=== PATIENT | female | born 1975 | race Caucasian/White ===

== ENCOUNTER → 2017-05-24 16:28 | Outpatient (CLI) | payer OTHER, SELFPAY ==
[2017-05-24 20:32] LABS: Amphetamine/Metha Screen,Urine Negative ng/mL (<1000); Barbiturates Screen,Urine Negative ng/mL (<200); Benzodiazepines Screen,Urine Positive ng/mL (200); Cannabinoid Screen,Urine Negative ng/mL (<50); Cocaine Screen,Urine Negative ng/g (<300); Methadone Screen,Urine Negative ng/mL (<300); Opiate Screen,Urine Negative ng/mL (<300); Phencyclidine Screen,Urine Negative ng/mL (<25)
== END ==
PROVIDERS: Visit Provider Emergency Medicine
DX: Z79.899 Other long term (current) drug therapy (principal)
CPT/HCPCS: 80305

== ENCOUNTER → 2017-06-01 16:37 | Outpatient (CLI) | payer OTHER, SELFPAY ==
--- NOTE | 2017-06-01 16:40 | MM_ITS ---
MM Dig screening mamm BI w/CAD CAD Screening COMPARISON: None, this is baseline INDICATION: There is a history of breast cancer in the patient's maternal great-grandmother diagnosed after menopause and paternal great aunt diagnosed in her 40s TECHNIQUE: Standard CC and MLO images were obtained. R2 CAD reviewed. FINDINGS: Prominent diffuse fibroglandular densities are seen throughout both breasts. There is asymmetric somewhat nodular densities upper outer quadrant left breast likely resenting summation shadows. However recommend patient return for spot compression views of this area for better evaluation. There are no suspicious microcalcifications. IMPRESSION: Fibrofatty parenchyma with asymmetric nodular densities left breast BI-RADS Category: 0 Need Additional Imaging Evaluaiton RECOMMENDED FOLLOW-UP: IMM - IMMEDIATE FOLLOW-UP RECOMMENDED (A letter has been sent to the patient regarding results of the study.)
== END ==
PROVIDERS: PCP Emergency Medicine; Visit Provider Emergency Medicine
DX: Z12.31 Encounter for screening mammogram for malignant neoplasm of breast (principal)
CPT/HCPCS: 77067

== ENCOUNTER → 2017-06-18 16:09 | Outpatient (CLI) | payer OTHER, SELFPAY ==
--- NOTE | 2017-06-18 | US_ITS ---
MM Dig spot mag LT, US breast LT complete CLINICAL INDICATION: Follow-up abnormal mammogram ITS.REASON: DENSITY IN LT BREAST ORDERING PHYSICIAN: KATHLEEN Woods PATIENT AGE: 42 years COMPARISON: 05/22/2017 TECHNIQUE: Spot compression views along with left breast ultrasound FINDINGS: Average fibroglandular tissue. No malignant appearing mass or malignant appearing microcalcification. There is some asymmetric density in the upper outer aspect of the left breast. No discrete nodule however is apparent on both views. Left breast ultrasound complete with axilla: No cystic or solid lesions evident. Small nodes present in the axilla. IMPRESSION: Probably benign findings. Asymmetric density probably corresponds to fibroglandular tissue. BI-RADS Category 3 probably benign Recommendations: Recommend 6 month left breast mammographic follow-up
== END ==
PROVIDERS: PCP Emergency Medicine; Visit Provider Physician Assistant
DX: R92.8 Other abnormal and inconclusive findings on diagnostic imaging of breast (principal)
CPT/HCPCS: 76641; 77065

== ENCOUNTER → 2017-08-20 16:18 | Outpatient (REF) | payer OTHER, SELFPAY ==
[2017-08-20 19:33] LABS: Amphetamine/Metha Screen,Urine Negative ng/mL (<1000); Barbiturates Screen,Urine Negative ng/mL (<200); Benzodiazepines Screen,Urine Positive ng/mL (200); Cannabinoid Screen,Urine Negative ng/mL (<50); Cocaine Screen,Urine Negative ng/g (<300); Methadone Screen,Urine Negative ng/mL (<300); Opiate Screen,Urine Negative ng/mL (<300); Phencyclidine Screen,Urine Negative ng/mL (<25)
== END ==
LOC: LAB 16:18
PROVIDERS: Visit Provider Emergency Medicine
DX: Z79.899 Other long term (current) drug therapy (principal)
CPT/HCPCS: 80305

== ENCOUNTER → 2017-11-09 16:27 | Outpatient (REF) | payer OTHER, SELFPAY ==
[2017-11-09 18:43] LABS: Amphetamine/Metha Screen,Urine Negative ng/mL (<1000); Barbiturates Screen,Urine Negative ng/mL (<200); Benzodiazepines Screen,Urine Positive ng/mL (<200); Cannabinoid Screen,Urine Negative ng/mL (<50); Cocaine Screen,Urine Negative ng/mL (<300); Methadone Screen,Urine Negative ng/mL (<300); Opiate Screen,Urine Negative ng/mL (<300); Phencyclidine Screen,Urine Negative ng/mL (<25)
== END ==
LOC: LAB 16:27
PROVIDERS: Visit Provider Emergency Medicine
DX: F41.9 Anxiety disorder, unspecified (principal); Z79.899 Other long term (current) drug therapy
CPT/HCPCS: 80305

== ENCOUNTER → 2018-02-02 16:22 | Outpatient (REF) | payer OTHER, SELFPAY ==
[2018-02-02 20:09] LABS: Amphetamine/Metha Screen,Urine Negative ng/mL (<1000); Barbiturates Screen,Urine Negative ng/mL (<200); Benzodiazepines Screen,Urine Positive ng/mL (<200); Cannabinoid Screen,Urine Negative ng/mL (<50); Cocaine Screen,Urine Negative ng/mL (<300); Methadone Screen,Urine Negative ng/mL (<300); Opiate Screen,Urine Negative ng/mL (<300); Phencyclidine Screen,Urine Negative ng/mL (<25)
== END ==
LOC: LAB 16:22
PROVIDERS: PCP Emergency Medicine; Visit Provider Emergency Medicine
DX: Z79.899 Other long term (current) drug therapy (principal)
CPT/HCPCS: 80305

== ENCOUNTER → 2018-04-05 17:44 | Outpatient (CLI) | payer OTHER, SELFPAY ==
[2018-04-05 21:48] LABS: Amphetamine/Metha Screen,Urine Negative ng/mL (<1000); Barbiturates Screen,Urine Negative ng/mL (<200); Benzodiazepines Screen,Urine Positive ng/mL (<200); Cannabinoid Screen,Urine Negative ng/mL (<50); Cocaine Screen,Urine Negative ng/mL (<300); Methadone Screen,Urine Negative ng/mL (<300); Opiate Screen,Urine Negative ng/mL (<300); Phencyclidine Screen,Urine Negative ng/mL (<25)
== END ==
PROVIDERS: Visit Provider Emergency Medicine
DX: M54.41 Lumbago with sciatica, right side (principal); G89.29 Other chronic pain
CPT/HCPCS: 80305

== ENCOUNTER → 2018-06-14 07:54 | Outpatient (CLI) | payer OTHER, SELFPAY ==
--- NOTE | 2018-06-14 08:00 | MR_ITS ---
MR lumbar spine wo con, MR 3-d myelogram/MRCP HISTORY: Low back X years. Right Leg pain. ITS.REASON: BACK PAIN ORDERING PHYSICIAN: Comfort Soria PATIENT AGE: 43 years Comparison: X-RAY 12/06/06 TECHNIQUE: Standard multiplanar multiecho sequences are performed without contrast. 3-D MIP and myelographic images are also rendered and reviewed FINDINGS: There is normal alignment. The spinal cord ends at the L1 level. There is a 1 cm T2 hyperintensity involving the inferior aspect of L1 slightly hyperintense on T1 and may be due to small hemangioma. L1-L2: Unremarkable. L2-L3: There is some mild facet and ligamentum flavum hypertrophic change. L3-L4: There is mild degenerative disc disease with minimal bulging disc along with facet and ligamentum hypertrophy with mild bilateral lateral recess narrowing and moderate right and mild left foraminal narrowing. The bulging disc is slightly eccentric toward the right at this level. L4-L5: There is a left foraminal and lateral disc protrusion which results in mild left-sided foraminal narrowing abutting the exiting L4 nerve root. L5-S1: Unremarkable. IMPRESSION: 1. L3-L4: There is mild degenerative disc disease with minimal bulging disc along with facet and ligamentum hypertrophy with mild bilateral lateral recess narrowing and moderate right and mild left foraminal narrowing. The bulging disc is slightly eccentric toward the right at this level. 2. L4-L5: There is a left foraminal and lateral disc protrusion which results in mild left-sided foraminal narrowing abutting the exiting L4 nerve root
== END ==
PROVIDERS: PCP Emergency Medicine; Visit Provider Nurse Practitioner Family
DX: M54.5 Low back pain (principal)
CPT/HCPCS: 72148; 76376

== ENCOUNTER → 2018-07-19 18:23 | Outpatient (CLI) | payer OTHER, SELFPAY ==
[2018-07-19 19:57] LABS: Amphetamine/Metha Screen,Urine Negative ng/mL (<1000); Barbiturates Screen,Urine Negative ng/mL (<200); Benzodiazepines Screen,Urine Positive ng/mL (<200); Cannabinoid Screen,Urine Negative ng/mL (<50); Cocaine Screen,Urine Negative ng/mL (<300); Methadone Screen,Urine Negative ng/mL (<300); Opiate Screen,Urine Positive ng/mL (<300); Phencyclidine Screen,Urine Negative ng/mL (<25)
== END ==
PROVIDERS: Visit Provider Emergency Medicine
DX: Z79.899 Other long term (current) drug therapy (principal)
CPT/HCPCS: 80305

== ENCOUNTER → 2018-10-17 18:15 | Outpatient (CLI) | payer OTHER, SELFPAY ==
[2018-10-17 19:03] LABS: Amphetamine/Metha Screen,Urine Positive ng/mL (<1000); Barbiturates Screen,Urine Negative ng/mL (<200); Benzodiazepines Screen,Urine Positive ng/mL (<200); Cannabinoid Screen,Urine Negative ng/mL (<50); Cocaine Screen,Urine Negative ng/mL (<300); Methadone Screen,Urine Negative ng/mL (<300); Opiate Screen,Urine Negative ng/mL (<300); Phencyclidine Screen,Urine Negative ng/mL (<25)
== END ==
PROVIDERS: Visit Provider Emergency Medicine
DX: Z79.899 Other long term (current) drug therapy (principal)
CPT/HCPCS: 80305

== ENCOUNTER → 2018-11-21 18:01 | Outpatient (CLI) | payer OTHER, SELFPAY ==
[2018-11-21 19:07] LABS: Amphetamine/Metha Screen,Urine Negative ng/mL (<1000); Barbiturates Screen,Urine Negative ng/mL (<200); Benzodiazepines Screen,Urine Positive ng/mL (<200); Cannabinoid Screen,Urine Negative ng/mL (<50); Cocaine Screen,Urine Negative ng/mL (<300); Methadone Screen,Urine Negative ng/mL (<300); Opiate Screen,Urine Negative ng/mL (<300); Phencyclidine Screen,Urine Negative ng/mL (<25)
== END ==
PROVIDERS: Visit Provider Emergency Medicine
DX: Z79.899 Other long term (current) drug therapy (principal)
CPT/HCPCS: 80305

== ENCOUNTER → 2019-04-04 16:49 | Outpatient (CLI) | payer OTHER, SELFPAY ==
[2019-04-04 18:21] LABS: Amphetamine/Metha Screen,Urine Negative ng/mL (<1000); Barbiturates Screen,Urine Negative ng/mL (<200); Benzodiazepines Screen,Urine Positive ng/mL (<200); Cannabinoid Screen,Urine Negative ng/mL (<50); Cocaine Screen,Urine Negative ng/mL (<300); Methadone Screen,Urine Negative ng/mL (<300); Opiate Screen,Urine Negative ng/mL (<300); Phencyclidine Screen,Urine Negative ng/mL (<25)
[2019-04-13 10:21] LABS: Oxycodone Positive (.); Oxymorphone Positive (.)
[2019-04-13 11:13] LABS: Oxycodone Confirm 1582 ng/mL (Cutoff=100); Oxymorphone Confirm 1648 ng/mL (Cutoff=100)
== END ==
PROVIDERS: Visit Provider Emergency Medicine
DX: Z79.899 Other long term (current) drug therapy (principal)
CPT/HCPCS: 80305; 80365

== ENCOUNTER → 2019-05-31 18:38 | Outpatient (CLI) | payer OTHER, SELFPAY ==
[2019-05-31 19:24] LABS: Amphetamine/Metha Screen,Urine Positive ng/mL (<1000); Barbiturates Screen,Urine Negative ng/mL (<200); Benzodiazepines Screen,Urine Positive ng/mL (<200); Cannabinoid Screen,Urine Negative ng/mL (<50); Cocaine Screen,Urine Negative ng/mL (<300); Methadone Screen,Urine Negative ng/mL (<300); Opiate Screen,Urine Negative ng/mL (<300); Phencyclidine Screen,Urine Negative ng/mL (<25)
[2019-06-11 18:13] LABS: Oxycodone (GC/MS) >3000 ng/mL (Cutoff=100)
[2019-06-11 22:06] LABS: Opiates Negative (Cutoff=100); Oxymorphone (GC/MS) 910 ng/mL (Cutoff=100)
== END ==
PROVIDERS: Visit Provider Emergency Medicine
DX: G89.29 Other chronic pain (principal); M54.41 Lumbago with sciatica, right side
CPT/HCPCS: 80305; 80361; 80365; G0480

== ENCOUNTER → 2019-09-26 10:53 | Outpatient (CLI) | payer OTHER, SELFPAY ==
--- NOTE | 2019-09-26 10:59 | XR_ITS ---
PROCEDURE: XR ANKLE WT BEARING LT MIN 3V Left foot weight-bearing three views CLINICAL INDICATION: ankle pain COMPARISON: XR FOOT WT BEARING LT 2V from 09/26/2019 FINDINGS: The ankle has an unremarkable appearance. No fracture or dislocation. There is minimal bony hypertrophic change of the neck of the talus anteriorly. Three views of the left foot show no fracture or dislocation. There is borderline pes planus and there is minimal osteoarthritic change of the 1st MTP joint. IMPRESSION: Mild degenerative changes, no acute finding Dictated by: Lorenzo Hanley MD 09/26/2019 15:14 Electronically signed by Lorenzo Hanley MD in [place] 09/26/2019 15:14
--- NOTE | 2019-09-26 10:59 | XR_ITS ---
PROCEDURE: XR ANKLE WT BEARING RT MIN 3V Right foot weight-bearing three views CLINICAL INDICATION: ankle pain Medial pain COMPARISON: XR FOOT WT BEARING RT 2V from 09/26/2019 FINDINGS: There are mild degenerative changes at the ankle joint with minimal spurring of the anterior and posterior distal tibia and the talus this anteriorly and posteriorly. There is mild pes planus and there is a small calcaneal spur. Mild bony hypertrophy is present at the talonavicular joint. Mild bony hypertrophy also noted at the head of the 1st metatarsal. No fracture or dislocation. No lytic or blastic change. IMPRESSION: Degenerative changes with pes planus, no acute finding Dictated by: Lorenzo Hanley MD 09/26/2019 15:11 Electronically signed by Lorenzo Hanley MD in [place] 09/26/2019 15:11
--- NOTE | 2019-09-26 10:59 | XR_ITS ---
PROCEDURE: XR ANKLE WT BEARING LT MIN 3V Left foot weight-bearing three views CLINICAL INDICATION: ankle pain COMPARISON: XR FOOT WT BEARING LT 2V from 09/26/2019 FINDINGS: The ankle has an unremarkable appearance. No fracture or dislocation. There is minimal bony hypertrophic change of the neck of the talus anteriorly. Three views of the left foot show no fracture or dislocation. There is borderline pes planus and there is minimal osteoarthritic change of the 1st MTP joint. IMPRESSION: Mild degenerative changes, no acute finding Dictated by: Lorenzo aHnley MD 09/26/2019 15:14 Electronically signed by Lorenzo Hanley MD in [place] 09/26/2019 15:14
== END ==
PROVIDERS: PCP Emergency Medicine; Visit Provider Emergency Medicine
DX: M79.671 Pain in right foot (principal); M79.672 Pain in left foot
CPT/HCPCS: 73610; 73620

== ENCOUNTER → 2020-04-08 18:02 | Outpatient (CLI) | payer OTHER, SELFPAY ==
[2020-04-08 18:58] LABS: Alanine Aminotransferase 16 U/L (12-78); Albumin Level 4.1 g/dl (3.5-5.0); Albumin/Globulin Ratio 1.4 (1.1-1.8); Alkaline Phosphatase 91 U/L (38-126); Aspartate Amino Transferase 20 U/L (14-36); Bilirubin,Total 0.5 mg/dl (0.2-1.3); Blood Urea Nitrogen 17 mg/dl (7-17); Calcium 9.2 mg/dl (8.4-10.2); Carbon Dioxide 26 mmol/L (22.0-30.0); Chloride 104 mmol/L (98-107); Chol/HDL Ratio 2.6 (1-3.5); Cholesterol 162 mg/dl (140-200); Estimated Glomerular Filt Rate 78 ml/min (>60); GFR (African American) 94 ML/MIN (>60); Globulin 2.9 g/dL (1.3-3.2); Glucose 98 mg/dl (74-100); HDL Cholesterol 62 mg/dl (40-60); Sodium 138 mmol/L (136-145); Triglycerides 97 mg/dl (30-150); VLDL Cholesterol 19 mg/dL (0-40)
[2020-04-08 19:05] LABS: Basophils # 0.1 K/mm3 (0-0.2); Basophils % 0.9 % (0.1-2.0); Eosinophils # 0.2 K/mm3 (0.0-0.4); Eosinophils % 2.8 % (0.1-12.0); Hematocrit 41.8 % (37.0-47.0); Hemoglobin 13.7 g/dL (12.2-16.2); Lymphocytes # 2.9 K/mm3 (0.7-4.5); Lymphocytes % 33.3 % (10-50); Mean Corpuscular HGB Conc 32.8 g/dL (31.8-35.4); Mean Corpuscular Hemoglobin 28.2 pg (27.0-31.2); Mean Corpuscular Volume 85.9 fl (81-99); Mean Platelet Volume 8.9 fl (7.4-10.4); Monocytes # 0.7 K/mm3 (0.1-1.0); Monocytes % 7.5 % (1.7-9.3); Neutrophils # 4.9 K/mm3 (1.8-7.8); Neutrophils % 55.7 % (37.0-80.0); Platelet Count 339 K/mm3 (142-424); Red Blood Count 4.86 M/mm3 (4.20-5.40); Red Cell Distribution Width 14.7 % (11.5-17.5); White Blood Count 8.7 K/mm3 (4.8-10.8)
[2020-04-08 19:10] LABS: Direct LDL Cholesterol 84.96 mg/dL (100-129)
[2020-04-08 19:16] LABS: T4 (Thyroxine) 10.2 ug/dl (5.53-11.0)
[2020-04-08 19:19] LABS: 25-OH Vitamin D, Total 28.7 ng/mL (30-100)
[2020-04-08 19:29] LABS: Thyroid Stimulating Hormone 1.47 uIU/mL (0.465-4.68)
== END ==
PROVIDERS: Visit Provider Emergency Medicine
DX: F41.9 Anxiety disorder, unspecified (principal); R53.83 Other fatigue; E55.9 Vitamin D deficiency, unspecified
CPT/HCPCS: 80053; 80061; 82306; 84436; 84443; 85025

== ENCOUNTER → 2020-06-07 16:48 | Outpatient (CLI) | payer OTHER, SELFPAY ==
[2020-06-07 19:33] LABS: Amphetamine/Metha Screen,Urine Positive ng/ml (<1000)
[2020-06-07 19:34] LABS: Barbiturates Screen,Urine Negative ng/ml (<200)
[2020-06-07 19:35] LABS: Benzodiazepines Screen,Urine Positive ng/ml (<200); Cannabinoid Screen,Urine Negative ng/ml (<50)
[2020-06-07 19:36] LABS: Cocaine Screen,Urine Negative ng/ml (<300); Methadone Screen,Urine Negative ng/ml (<300)
[2020-06-07 19:37] LABS: Opiate Screen,Urine Positive ng/ml (<300)
[2020-06-07 19:38] LABS: Phencyclidine Screen,Urine Negative ng/ml (<25)
== END ==
PROVIDERS: Visit Provider Emergency Medicine
DX: Z79.899 Other long term (current) drug therapy (principal)
CPT/HCPCS: 80305

== ENCOUNTER → 2020-08-09 18:01 | Outpatient (CLI) | payer OTHER, SELFPAY ==
[2020-08-09 18:50] LABS: Amphetamine/Metha Screen,Urine Negative ng/ml (<1000)
[2020-08-09 18:52] LABS: Barbiturates Screen,Urine Negative ng/ml (<200)
[2020-08-09 18:53] LABS: Benzodiazepines Screen,Urine Positive ng/ml (<200)
[2020-08-09 18:54] LABS: Cannabinoid Screen,Urine Negative ng/ml (<50); Cocaine Screen,Urine Negative ng/ml (<300)
[2020-08-09 18:55] LABS: Methadone Screen,Urine Negative ng/ml (<300); Opiate Screen,Urine Negative ng/ml (<300)
[2020-08-09 18:56] LABS: Phencyclidine Screen,Urine Negative ng/ml (<25)
== END ==
PROVIDERS: Visit Provider Emergency Medicine
DX: F41.9 Anxiety disorder, unspecified (principal); Z79.899 Other long term (current) drug therapy
CPT/HCPCS: 80305

== ENCOUNTER → 2020-10-04 18:04 | Outpatient (CLI) | payer OTHER, SELFPAY ==
[2020-10-04 19:33] LABS: Amphetamine/Metha Screen,Urine Positive ng/ml (<1000)
[2020-10-04 19:34] LABS: Barbiturates Screen,Urine Negative ng/ml (<200); Benzodiazepines Screen,Urine Positive ng/ml (<200)
[2020-10-04 19:35] LABS: Cannabinoid Screen,Urine Negative ng/ml (<50)
[2020-10-04 19:36] LABS: Cocaine Screen,Urine Negative ng/ml (<300); Methadone Screen,Urine Negative ng/ml (<300)
[2020-10-04 19:37] LABS: Opiate Screen,Urine Positive ng/ml (<300)
[2020-10-04 19:38] LABS: Phencyclidine Screen,Urine Negative ng/ml (<25)
== END ==
PROVIDERS: Visit Provider Emergency Medicine
DX: Z79.899 Other long term (current) drug therapy (principal)
CPT/HCPCS: 80305

== ENCOUNTER → 2020-12-06 17:34 | Outpatient (CLI) | payer OTHER, SELFPAY ==
[2020-12-06 19:12] LABS: Barbiturates Screen,Urine Negative ng/ml (<200); Benzodiazepines Screen,Urine Positive ng/ml (<200)
[2020-12-06 19:13] LABS: Amphetamine/Metha Screen,Urine Negative ng/ml (<1000)
[2020-12-06 19:14] LABS: Cannabinoid Screen,Urine Negative ng/ml (<50); Cocaine Screen,Urine Negative ng/ml (<300)
[2020-12-06 19:15] LABS: Methadone Screen,Urine Negative ng/ml (<300); Opiate Screen,Urine Negative ng/ml (<300)
[2020-12-06 19:16] LABS: Phencyclidine Screen,Urine Negative ng/ml (<25)
== END ==
PROVIDERS: Visit Provider Emergency Medicine
DX: Z79.899 Other long term (current) drug therapy (principal)
CPT/HCPCS: 80305

== ENCOUNTER → 2021-01-22 18:12 | Outpatient (CLI) | payer OTHER, SELFPAY ==
[2021-01-22 19:19] LABS: Amphetamine/Metha Screen,Urine Negative ng/ml (<1000); Barbiturates Screen,Urine Negative ng/ml (<200)
[2021-01-22 19:20] LABS: Benzodiazepines Screen,Urine Positive ng/ml (<200)
[2021-01-22 19:21] LABS: Cannabinoid Screen,Urine Negative ng/ml (<50); Cocaine Screen,Urine Negative ng/ml (<300)
[2021-01-22 19:22] LABS: Methadone Screen,Urine Negative ng/ml (<300)
[2021-01-22 19:23] LABS: Opiate Screen,Urine Negative ng/ml (<300); Phencyclidine Screen,Urine Negative ng/ml (<25)
== END ==
PROVIDERS: Visit Provider Emergency Medicine
DX: Z79.899 Other long term (current) drug therapy (principal)
CPT/HCPCS: 80305

== ENCOUNTER → 2021-06-03 16:00 | Outpatient (CLI) | payer OTHER, SELFPAY ==
[2021-06-03 20:03] LABS: Barbiturates Screen,Urine Negative ng/ml (<200); Benzodiazepines Screen,Urine Positive ng/ml (<200)
[2021-06-03 20:04] LABS: Amphetamine/Metha Screen,Urine Negative ng/ml (<1000)
[2021-06-03 20:05] LABS: Cannabinoid Screen,Urine Negative ng/ml (<50); Cocaine Screen,Urine Negative ng/ml (<300)
[2021-06-03 20:06] LABS: Methadone Screen,Urine Negative ng/ml (<300)
[2021-06-03 20:07] LABS: Opiate Screen,Urine Negative ng/ml (<300); Phencyclidine Screen,Urine Negative ng/ml (<25)
== END ==
PROVIDERS: Visit Provider Emergency Medicine
DX: Z79.899 Other long term (current) drug therapy (principal)
CPT/HCPCS: 80305

== ENCOUNTER → 2021-08-04 08:48 | Outpatient (CLI) | payer OTHER, SELFPAY ==
[2021-08-04 20:47] LABS: Amphetamine/Metha Screen,Urine Negative ng/ml (<1000)
[2021-08-04 20:49] LABS: Barbiturates Screen,Urine Negative ng/ml (<200); Benzodiazepines Screen,Urine Positive ng/ml (<200)
[2021-08-04 20:50] LABS: Cannabinoid Screen,Urine Negative ng/ml (<50); Cocaine Screen,Urine Negative ng/ml (<300)
[2021-08-04 20:51] LABS: Methadone Screen,Urine Negative ng/ml (<300)
[2021-08-04 20:52] LABS: Opiate Screen,Urine Positive ng/ml (<300); Phencyclidine Screen,Urine Negative ng/ml (<25)
== END ==
PROVIDERS: Visit Provider Emergency Medicine
DX: G89.29 Other chronic pain (principal); M54.41 Lumbago with sciatica, right side
CPT/HCPCS: 80305

== ENCOUNTER → 2021-10-01 07:11 | Outpatient (CLI) | payer OTHER, SELFPAY ==
[2021-09-30 20:04] LABS: Amphetamine/Metha Screen,Urine Negative ng/ml (<1000)
[2021-09-30 20:05] LABS: Barbiturates Screen,Urine Negative ng/ml (<200)
[2021-09-30 20:06] LABS: Benzodiazepines Screen,Urine Positive ng/ml (<200); Cannabinoid Screen,Urine Negative ng/ml (<50)
[2021-09-30 20:07] LABS: Cocaine Screen,Urine Negative ng/ml (<300)
[2021-09-30 20:08] LABS: Methadone Screen,Urine Negative ng/ml (<300); Opiate Screen,Urine Negative ng/ml (<300)
[2021-09-30 20:09] LABS: Phencyclidine Screen,Urine Negative ng/ml (<25)
== END ==
PROVIDERS: PCP Emergency Medicine; Visit Provider Emergency Medicine
DX: Z79.899 Other long term (current) drug therapy (principal)
CPT/HCPCS: 80305

== ENCOUNTER → 2022-01-19 16:25 | Outpatient (CLI) | payer OTHER, SELFPAY ==
[2022-01-19 17:25] LABS: Basophils # 0.1 K/mm3 (0-0.2); Basophils % 0.9 % (0.1-2.0); Eosinophils # 0.2 K/mm3 (0.0-0.4); Eosinophils % 2.1 % (0.1-12.0); Hematocrit 41.2 % (37.0-47.0); Hemoglobin 13.2 g/dL (12.2-16.2); Lymphocytes % 34.2 % (10-50); Mean Corpuscular HGB Conc 32.1 g/dL (31.8-35.4); Mean Corpuscular Hemoglobin 27.5 pg (27.0-31.2); Mean Corpuscular Volume 85.8 fl (81-99); Mean Platelet Volume 7.7 fl (7.4-10.4); Monocytes # 0.7 K/mm3 (0.1-1.0); Monocytes % 7.3 % (1.7-9.3); Neutrophils # 4.9 K/mm3 (1.8-7.8); Neutrophils % 55.5 % (37.0-80.0); Platelet Count 309 K/mm3 (142-424); Red Blood Count 4.81 M/mm3 (4.20-5.40); Red Cell Distribution Width 14.4 % (11.5-17.5); White Blood Count 8.9 K/mm3 (4.8-10.8)
[2022-01-19 18:43] LABS: 25-OH Vitamin D, Total 48.7 ng/mL (30-100)
[2022-01-19 19:26] LABS: Chloride 103 mmol/L (98-107); Potassium 4.3 mmoL/L (3.5-5.1); Sodium 139 mmol/L (136-145)
[2022-01-19 19:28] LABS: Alanine Aminotransferase 19 U/L (12-78); Aspartate Amino Transferase 23 U/L (14-36); Blood Urea Nitrogen 16 mg/dl (7-17); Estimated Glomerular Filt Rate 108 ml/min (>60); GFR (African American) 130 ML/MIN (>60)
[2022-01-19 19:29] LABS: Albumin Level 4.2 g/dl (3.5-5.0); Albumin/Globulin Ratio 1.5 (1.1-1.8); Alkaline Phosphatase 89 U/L (38-126); Anion Gap 14.3 mEq/L (5-15); Bilirubin,Total 0.5 mg/dl (0.2-1.3); Calcium 8.4 mg/dl (8.4-10.2); Carbon Dioxide 26 mmol/L (22.0-30.0); Chol/HDL Ratio 2.8 (1-3.5); Cholesterol 189 mg/dl (140-200); Globulin 2.8 g/dL (1.3-3.2); Glucose 71 mg/dl (74-100); HDL Cholesterol 68 mg/dl (40-60); Triglycerides 63 mg/dl (30-150); VLDL Cholesterol 13 mg/dL (0-40)
[2022-01-19 19:40] LABS: Direct LDL Cholesterol 92.19 mg/dL (100-129)
== END ==
PROVIDERS: PCP Emergency Medicine; Visit Provider Emergency Medicine
DX: E66.01 Morbid (severe) obesity due to excess calories (principal); Z68.41 Body mass index [BMI] 40.0-44.9, adult
CPT/HCPCS: 80053; 80061; 82306; 84443; 85025

== ENCOUNTER → 2022-05-15 16:00 | Outpatient (CLI) | payer OTHER, SELFPAY ==
[2022-05-15 19:08] LABS: Amphetamine/Metha Screen,Urine Negative ng/ml (<1000); Barbiturates Screen,Urine Negative ng/ml (<200)
[2022-05-15 19:09] LABS: Benzodiazepines Screen,Urine Positive ng/ml (<200)
[2022-05-15 19:10] LABS: Cannabinoid Screen,Urine Negative ng/ml (<50); Cocaine Screen,Urine Negative ng/ml (<300)
[2022-05-15 19:11] LABS: Methadone Screen,Urine Negative ng/ml (<300)
[2022-05-15 19:12] LABS: Opiate Screen,Urine Negative ng/ml (<300); Phencyclidine Screen,Urine Negative ng/ml (<25)
== END ==
PROVIDERS: PCP Emergency Medicine; Visit Provider Emergency Medicine
DX: Z79.899 Other long term (current) drug therapy (principal)
CPT/HCPCS: 80305

== ENCOUNTER → 2022-07-03 14:14 | Outpatient (CLI) | payer OTHER, SELFPAY ==
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
== END ==
PROVIDERS: PCP Emergency Medicine; Visit Provider Emergency Medicine
DX: M54.9 Dorsalgia, unspecified (principal); M54.50 Low back pain, unspecified
CPT/HCPCS: 72148; 76376

== ENCOUNTER → 2022-09-01 16:10 | Outpatient (CLI) | payer OTHER, SELFPAY ==
[2022-09-01 20:32] LABS: Amphetamine/Metha Screen,Urine Negative ng/ml (<1000)
[2022-09-01 20:33] LABS: Barbiturates Screen,Urine Negative ng/ml (<200); Benzodiazepines Screen,Urine Positive ng/ml (<200)
[2022-09-01 20:34] LABS: Cannabinoid Screen,Urine Negative ng/ml (<50); Cocaine Screen,Urine Negative ng/ml (<300)
[2022-09-01 20:35] LABS: Methadone Screen,Urine Negative ng/ml (<300)
[2022-09-01 20:36] LABS: Opiate Screen,Urine Negative ng/ml (<300); Phencyclidine Screen,Urine Negative ng/ml (<25)
== END ==
PROVIDERS: PCP Physician Assistant; Visit Provider Physician Assistant
DX: Z79.899 Other long term (current) drug therapy (principal)
CPT/HCPCS: 80305

== ENCOUNTER → 2022-10-28 11:00 | Outpatient (CLI) | payer OTHER, SELFPAY ==
[2022-10-28 20:10] LABS: Amphetamine/Metha Screen,Urine Negative ng/ml (<1000)
[2022-10-28 20:13] LABS: Cannabinoid Screen,Urine Negative ng/ml (<50)
[2022-10-28 20:14] LABS: Barbiturates Screen,Urine Negative ng/ml (<200); Benzodiazepines Screen,Urine Positive ng/ml (<200)
[2022-10-28 20:15] LABS: Cocaine Screen,Urine Negative ng/ml (<300)
[2022-10-28 20:16] LABS: Methadone Screen,Urine Negative ng/ml (<300); Opiate Screen,Urine Negative ng/ml (<300)
[2022-10-28 20:17] LABS: Phencyclidine Screen,Urine Negative ng/ml (<25)
== END ==
PROVIDERS: PCP Emergency Medicine; Visit Provider Emergency Medicine
DX: F41.9 Anxiety disorder, unspecified (principal)
CPT/HCPCS: 80305

== ENCOUNTER → 2022-12-25 23:48 | Outpatient (CLI) | payer OTHER, SELFPAY ==
[2022-12-25 20:23] LABS: Amphetamine/Metha Screen,Urine Negative ng/ml (<1000); Barbiturates Screen,Urine Negative ng/ml (<200)
[2022-12-25 20:24] LABS: Benzodiazepines Screen,Urine Positive ng/ml (<200)
[2022-12-25 20:25] LABS: Cannabinoid Screen,Urine Negative ng/ml (<50); Cocaine Screen,Urine Negative ng/ml (<300)
[2022-12-25 20:26] LABS: Methadone Screen,Urine Negative ng/ml (<300)
[2022-12-25 20:27] LABS: Opiate Screen,Urine Negative ng/ml (<300); Phencyclidine Screen,Urine Negative ng/ml (<25)
== END ==
PROVIDERS: PCP Emergency Medicine; Visit Provider Emergency Medicine
DX: Z79.899 Other long term (current) drug therapy (principal)
CPT/HCPCS: 80305

== ENCOUNTER → 2023-02-22 08:23 | Outpatient (CLI) | payer OTHER, SELFPAY ==
[2023-02-22 21:32] LABS: Benzodiazepines Screen,Urine Positive ng/ml (<200)
[2023-02-22 21:33] LABS: Amphetamine/Metha Screen,Urine Negative ng/ml (<1000); Barbiturates Screen,Urine Negative ng/ml (<200)
[2023-02-22 21:34] LABS: Cannabinoid Screen,Urine Negative ng/ml (<50); Cocaine Screen,Urine Negative ng/ml (<300)
[2023-02-22 21:35] LABS: Methadone Screen,Urine Negative ng/ml (<300)
[2023-02-22 21:36] LABS: Opiate Screen,Urine Negative ng/ml (<300); Phencyclidine Screen,Urine Negative ng/ml (<25)
== END ==
PROVIDERS: PCP Emergency Medicine; Visit Provider Emergency Medicine
DX: Z79.899 Other long term (current) drug therapy (principal)
CPT/HCPCS: 80305

== ENCOUNTER → 2023-02-22 09:37 | Outpatient (CLI) | payer OTHER, SELFPAY ==
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
== END ==
LOC: RAD 09:38
PROVIDERS: PCP Emergency Medicine; Visit Provider Emergency Medicine
DX: M54.2 Cervicalgia (principal); M54.6 Pain in thoracic spine; M54.9 Dorsalgia, unspecified; M54.16 Radiculopathy, lumbar region
CPT/HCPCS: 72141; 72146; 76376

== ENCOUNTER → 2023-03-17 14:08 | Outpatient (POV) | payer OTHER, SELFPAY ==
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
[2023-03-17 15:56] VITALS: BP 150/84; PULSE 83; RESP 18; O2SAT 96; BMI 38.3
== END ==
LOC: SC.PAIN 14:08
PROVIDERS: PCP Emergency Medicine; Visit Provider Nurse Practitioner Family
DX: M50.10 Cervical disc disorder with radiculopathy, unspecified cervical region (principal); M51.16 Intervertebral disc disorders with radiculopathy, lumbar region; G89.4 Chronic pain syndrome
CPT/HCPCS: 99202; G0463

== ENCOUNTER 2023-03-25 15:00 | Outpatient (RCR) | payer OTHER, SELFPAY ==
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
[2023-02-24 16:24] LABS: Blood Urea Nitrogen 17 mg/dl (7-17); Estimated Glomerular Filt Rate 90 ml/min (>60); GFR (African American) 109 ML/MIN (>60)
== END 2023-03-25 16:10 | disposition home or self-care (01) ==
LOC: PT 15:00
PROVIDERS: PCP Emergency Medicine; Visit Provider Emergency Medicine
DX: M54.2 Cervicalgia (principal); M54.16 Radiculopathy, lumbar region
CPT/HCPCS: 36415; 82565; 84520; 97010; 97014; 97035; 97110; 97140; 97163; 97530; G0283

== ENCOUNTER → 2023-03-26 09:34 | Outpatient (CLI) | payer OTHER, SELFPAY ==
[2023-03-26 21:37] LABS: Phencyclidine Screen,Urine Negative ng/ml (<25)
[2023-03-26 21:43] LABS: Amphetamine/Metha Screen,Urine Negative ng/ml (<1000)
[2023-03-26 21:44] LABS: Barbiturates Screen,Urine Negative ng/ml (<200); Benzodiazepines Screen,Urine Positive ng/ml (<200)
[2023-03-26 21:45] LABS: Cannabinoid Screen,Urine Negative ng/ml (<50)
[2023-03-26 21:48] LABS: Cocaine Screen,Urine Negative ng/ml (<300)
[2023-03-26 21:49] LABS: Methadone Screen,Urine Negative ng/ml (<300)
[2023-03-26 21:50] LABS: Opiate Screen,Urine Negative ng/ml (<300)
== END ==
PROVIDERS: PCP Internal Medicine; Visit Provider Internal Medicine
DX: Z79.899 Other long term (current) drug therapy (principal); Z79.891 Long term (current) use of opiate analgesic; M54.12 Radiculopathy, cervical region
CPT/HCPCS: 80305; 80307

== ENCOUNTER → 2023-04-08 09:17 | Outpatient (CLI) | payer OTHER, SELFPAY ==
[2023-04-08 21:32] LABS: Barbiturates Screen,Urine Negative ng/ml (<200); Benzodiazepines Screen,Urine Positive ng/ml (<200)
[2023-04-08 21:33] LABS: Cannabinoid Screen,Urine Negative ng/ml (<50)
[2023-04-08 21:34] LABS: Cocaine Screen,Urine Negative ng/ml (<300)
[2023-04-08 21:35] LABS: Methadone Screen,Urine Negative ng/ml (<300); Opiate Screen,Urine Negative ng/ml (<300)
[2023-04-08 21:36] LABS: Phencyclidine Screen,Urine Negative ng/ml (<25)
[2023-04-08 21:44] LABS: Amphetamine/Metha Screen,Urine Negative ng/ml (<1000)
== END ==
PROVIDERS: PCP Internal Medicine; Visit Provider Internal Medicine
DX: Z02.83 Encounter for blood-alcohol and blood-drug test (principal); Z79.899 Other long term (current) drug therapy
CPT/HCPCS: 80305

== ENCOUNTER 2023-04-21 06:54 | Outpatient (CLI) | payer OTHER, SELFPAY ==
[2023-04-21 23:22] LABS: Barbiturates Screen,Urine Negative ng/ml (<200); Benzodiazepines Screen,Urine Positive ng/ml (<200); Methadone Screen,Urine Negative ng/ml (<300)
[2023-04-21 23:56] LABS: Cannabinoid Screen,Urine Negative ng/ml (<50)
[2023-04-21 23:57] LABS: Amphetamine/Metha Screen,Urine Negative ng/ml (<1000); Cocaine Screen,Urine Negative ng/ml (<300)
[2023-04-21 23:59] LABS: Opiate Screen,Urine Negative ng/ml (<300); Phencyclidine Screen,Urine Negative ng/ml (<25)
== END 2023-04-21 23:59 ==
LOC: LAB.DROPOF 04-22 06:54
PROVIDERS: PCP Internal Medicine; Visit Provider Internal Medicine
DX: M51.16 Intervertebral disc disorders with radiculopathy, lumbar region (principal)
CPT/HCPCS: 80307

== ENCOUNTER 2023-10-07 16:15 | Outpatient (CLI) | payer OTHER, SELFPAY ==
[2023-10-07 19:01] LABS: Coronavirus 19, PCR Not Detected (NotDetected); Influenza A, PCR Not Detected (NotDetected); Influenza B, PCR Not Detected (NotDetected)
[2023-10-07 19:09] LABS: Basophils # 0.1 K/mm3 (0-0.2); Basophils % 1.3 % (0.1-2.0); Eosinophils # 0.1 K/mm3 (0.0-0.4); Eosinophils % 1.5 % (0.1-12.0); Hematocrit 39.1 % (37.0-47.0); Hemoglobin 12.1 g/dL (12.2-16.2); Lymphocytes # 1.6 K/mm3 (0.7-4.5); Lymphocytes % 25.8 % (10-50); Mean Corpuscular HGB Conc 31.1 g/dL (31.8-35.4); Mean Corpuscular Hemoglobin 25.2 pg (27.0-31.2); Mean Corpuscular Volume 81.1 fl (81-99); Mean Platelet Volume 8.4 fl (7.4-10.4); Monocytes # 0.4 K/mm3 (0.1-1.0); Monocytes % 6.6 % (1.7-9.3); Neutrophils % 64.9 % (37.0-80.0); Platelet Count 339 K/mm3 (142-424); Red Blood Count 4.81 M/mm3 (4.20-5.40); White Blood Count 6.2 K/mm3 (4.8-10.8)
[2023-10-07 20:23] LABS: Chloride 103 mmol/L (98-107); Potassium 3.9 mmoL/L (3.5-5.1); Sodium 137 mmol/L (136-145)
[2023-10-07 20:25] LABS: Alanine Aminotransferase 22 U/L (12-78); Alkaline Phosphatase 93 U/L (38-126); Aspartate Amino Transferase 21 U/L (14-36); Bilirubin,Total 0.3 mg/dl (0.2-1.3); Blood Urea Nitrogen 19 mg/dl (7-17); Estimated Glomerular Filt Rate 77 ml/min (>60); GFR (African American) 93 ML/MIN (>60)
[2023-10-07 20:26] LABS: Albumin Level 4.2 g/dl (3.5-5.0); Albumin/Globulin Ratio 1.6 (1.1-1.8); Anion Gap 11.9 mEq/L (5-15); Calcium 8.7 mg/dl (8.4-10.2); Carbon Dioxide 26 mmol/L (22.0-30.0); Cholesterol 183 mg/dl (140-200); Globulin 2.7 g/dL (1.3-3.2); Glucose 86 mg/dl (74-100); Total Protein,Serum 6.9 g/dl (6.3-8.2); Triglycerides 134 mg/dl (30-150); VLDL Cholesterol 27 mg/dL (0-40)
[2023-10-07 20:37] LABS: Direct LDL Cholesterol 89.07 mg/dL (100-129)
[2023-10-07 20:38] LABS: 25-OH Vitamin D, Total 57.7 ng/mL (30-100)
[2023-10-07 20:54] LABS: Thyroid Stimulating Hormone 0.61 uIU/mL (0.465-4.68)
[2023-10-07 21:05] LABS: Chol/HDL Ratio 3.5 (1-3.5); HDL Cholesterol 53 mg/dl (40-60)
== END 2023-10-07 23:59 | disposition home or self-care (01) ==
LOC: LAB.DROPOF 10-08 10:28
PROVIDERS: PCP Internal Medicine; Visit Provider Family Medicine
DX: Z79.899 Other long term (current) drug therapy (principal); R51.9 Headache, unspecified; J06.9 Acute upper respiratory infection, unspecified; R05.9 Cough, unspecified
CPT/HCPCS: 80050; 80053; 80061; 82306; 84443; 85025; 87636

== ENCOUNTER 2023-10-08 09:00 | Outpatient (CLI) | payer OTHER, SELFPAY ==
[2023-10-08 15:55] LABS: Iron 39 ug/dL (37-170)
[2023-10-08 16:05] LABS: Total Iron Binding Capacity 409 ug/dL (265-497)
== END 2023-10-08 23:59 | disposition home or self-care (01) ==
LOC: LAB.DROPOF 10-13 09:00
PROVIDERS: PCP Family Medicine; Visit Provider Family Medicine
DX: D50.8 Other iron deficiency anemias (principal)
CPT/HCPCS: 83540; 83550

== ENCOUNTER 2024-01-06 10:39 | Outpatient (CLI) | payer OTHER, SELFPAY ==
[2024-01-06 18:45] LABS: Basophils % 0.5 % (0.1-2.0); Eosinophils # 0.2 K/mm3 (0.0-0.4); Eosinophils % 2.3 % (0.1-12.0); Hematocrit 47.2 % (37.0-47.0); Hemoglobin 14.6 g/dL (12.2-16.2); Lymphocytes # 2.2 K/mm3 (0.7-4.5); Lymphocytes % 28.4 % (10-50); Mean Corpuscular HGB Conc 30.9 g/dL (31.8-35.4); Mean Corpuscular Hemoglobin 27.5 pg (27.0-31.2); Mean Corpuscular Volume 89.1 fl (81-99); Mean Platelet Volume 7.9 fl (7.4-10.4); Monocytes # 0.6 K/mm3 (0.1-1.0); Monocytes % 7.7 % (1.7-9.3); Neutrophils # 4.8 K/mm3 (1.8-7.8); Neutrophils % 61.1 % (37.0-80.0); Platelet Count 346 K/mm3 (142-424); Red Cell Distribution Width 16.8 % (11.5-17.5); White Blood Count 7.8 K/mm3 (4.8-10.8)
[2024-01-06 19:52] LABS: Alanine Aminotransferase 22 U/L (12-78); Albumin Level 4.4 g/dl (3.5-5.0); Albumin/Globulin Ratio 1.4 (1.1-1.8); Alkaline Phosphatase 89 U/L (38-126); Anion Gap 13.2 mEq/L (5-15); Aspartate Amino Transferase 21 U/L (14-36); Bilirubin,Total 0.5 mg/dl (0.2-1.3); Blood Urea Nitrogen 19 mg/dl (7-17); Calcium 9.4 mg/dl (8.4-10.2); Carbon Dioxide 23 mmol/L (22.0-30.0); Chloride 106 mmol/L (98-107); Estimated Glomerular Filt Rate 59 ml/min (>60); GFR (African American) 72 ML/MIN (>60); Globulin 3.1 g/dL (1.3-3.2); Glucose 83 mg/dl (74-100); Potassium 4.2 mmoL/L (3.5-5.1); Sodium 138 mmol/L (136-145); Total Protein,Serum 7.5 g/dl (6.3-8.2)
[2024-01-06 20:42] LABS: Iron 104 ug/dL (37-170)
== END 2024-01-06 23:59 | disposition home or self-care (01) ==
LOC: LAB.DROPOF 01-07 10:40
PROVIDERS: PCP Nurse Practitioner Family; Visit Provider Nurse Practitioner Family
DX: E66.9 Obesity, unspecified (principal); R53.83 Other fatigue; Z68.39 Body mass index [BMI] 39.0-39.9, adult
CPT/HCPCS: 80053; 82746; 83540; 85025

== ENCOUNTER 2024-05-26 16:30 | Outpatient (CLI) | payer OTHER, SELFPAY ==
[2024-05-26 19:29] LABS: Anion Gap 16.1 mEq/L (5-15); Blood Urea Nitrogen 14 mg/dl (7-17); Calcium 9.2 mg/dl (8.4-10.2); Carbon Dioxide 30 mmol/L (22.0-30.0); Chloride 96 mmol/L (98-107); Estimated Glomerular Filt Rate 76 ml/min (>60); GFR (African American) 92 ML/MIN (>60); Glucose 78 mg/dl (74-100); Potassium 4.1 mmoL/L (3.5-5.1); Sodium 138 mmol/L (136-145)
== END 2024-05-26 23:59 | disposition home or self-care (01) ==
LOC: LAB.DROPOF 05-27 11:00
PROVIDERS: PCP Family Medicine; Visit Provider Family Medicine
DX: I10 Essential (primary) hypertension (principal)
CPT/HCPCS: 80048

== ENCOUNTER 2024-10-03 14:45 | Emergency (ER) | payer OTHER, SELFPAY ==
--- OUTSIDE RECORDS SUMMARY | 2024-10-03 15:10 | XMS_ITS | Clinical Summary ---
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 Name Role Phone Unavailable Primary Care Provider Unavailabl e Family History Medical History Relation Name Comments Cancer Other 1 Diabetes Other 2 Hypertension Other 3 Lung cancer Other 4 Relation Name Status Comments Other 1 Other 2 Other 3 Other 4 Social History Tobacco Use Types Packs/Day Years Used Date Smoking Tobacco: Every Day Alcohol Use Standard Drinks/Week Comments Yes 0 (1 standard drink = 0.6 oz pur e alcohol) Comments Unknown Sex and Gender Information Value Date Recorded Sex Assigned at Not on file Legal Sex Female 6:51 PM EDT Gender Identity Not on file Sexual Orientation Not on file Last Filed Vital Signs Vital Sign Reading Time Taken Comments Blood Pressure 120/87 10/10/2018 8:16 AM EDT Pulse 76 10/10/2018 8:16 AM EDT Temperature 36.3 C (97.4 F) 10/10/2018 8:16 AM EDT Respiratory Rate 16 10/10/2018 8:16 AM EDT Oxygen Saturation - - Inhaled Oxygen Concentration - - Weight 106 kg (233 lb 15.9 oz) 10/10/2018 8:16 A M EDT Height 167.6 cm (5' 6 ) 06/20/2018 8:09 AM EST Body Mass Index 37.77 06/20/2018 8:09 AM EST Plan of Treatment Not on file
--- OUTSIDE RECORDS SUMMARY | 2024-10-03 15:10 | XMS_ITS | Continuity of Care Document ---
Author Organization [facility] [place] [facility] Address [address] [place] [address] Care Team Providers Care Jig Borer Name Role Phone ELYSE LYONS Primary Care Provider Assessment No assessment recorded. Plan of Treatment Reminders Order Date Submit Date Provider Last Modified By Organization Details Last Modified Time Details Appointments Office Visit15 2024 04:30P M HUANG MCCONNELL MD Not available Not available Not available Lab drug screen, urine - Meds: OXYCODONE GABAPENTI N AND TIZANIDIN E NAOMI 2024 025 TRENTON Zhao MD [facility] ([facility]), [address] [place] [address], [id number], 09/14/2024 15:26:51 Referral None recorded. Procedures None recorded. Surgeries None recorded. Imaging None recorded. Medication Orders gabapenti n 800 mg tablet [address] [facility], [address] [place] [address], [id number], 09/01/2024 09:03:03 oxycodone -acetamin ophen 10 mg-325 mg tablet [address] [facility], [address] [place] [address], [id number], 09/01/2024 09:03:03 oxycodone -acetamin ophen 10 mg-325 mg tablet 2024 025 [facility], [address] [address] [place], [id number], 10/02/2024 15:46:10 Patient TargetsNo targets recorded. Patient Instructions Encounter Date Encounter Id Patient Instructions Last Modified By Organization Details Last Modified Time 08/28/2024 [id number] Take medications EXACTLY as instructed. Call office for any problems DO NOT run out of medications and medications should last till next appointment. Notify office if going to be late or need to reschedule. [email or web address] Not available 08/28/2024 15:24:28 Reason for Referral None Reported. Problems Name Problem SNOMED Code Status Onset Date Resolution Date Notes Provider Name and Address Organization Details Recorded Time Neck pain 73237731 Active 024 HUANG M[facility]ONNELL [facility] [address] [facility] [place], [address] , [facility] 5 14:35:05 Low back pain 461827801 Active 024 HUANG MCCONNELL MD [address] [place], [address] , [facility] 4 09:07:55 Chronic low back pain 122878027 Active 025 HUANG MCCONNELL MD [address] [facility] [place], [address] , [facility] 5 14:34:34 Problem Notes None recorded. Medical Equipment None Reported. Medications Name Sig Start Date Stop Date Status Note LastModified by Organization Details LastModified Time metformin 500 mg tablet active Not Available Not Available Not Available trazodone 50 mg tablet active Not Available Not Available Not Available ibuprofen 800 mg tablet TAKE ONE TABLET BY MOUTH EVERY 8 HOURS active Not Available Not Available No t Available tizanidine 4 mg tablet TAKE ONE TABLET BY MOUTH EVERY 6 HOURS active Not Available Not Available No t Available benzonatate 200 mg capsule active Not Available Not Available Not Available sumatriptan 25 mg tablet active Not Available Not Available Not Available prednisone 20 mg tablet active Not Available Not Available Not Available phentermine 37.5 mg tablet active Not Available Not Available Not Available hydrocodone 10 mg-acetamin ophen 325 mg tablet Take 1 tablet four times a day 05/04 completed Not Available Not Available Not Available tramadol 50 mg tablet 05/04 completed Not Available Not Available Not Available lamotrigine 25 mg tablet TAKE 1 TABLET BY MOUTH EVERY DAY active Not Available Not Available No t Available oxycodone-a cetaminophe n 10 mg-325 mg tablet TAKE 1 TABLET BY MOUTH 4 TIMES A DAY active Not Available Not Available No t Available gabapentin 800 mg tablet TAKE 1 TABLET BY MOUTH 3 TIMES A DAY active Not Available Not Available No t Available amlodipine 10 mg tablet TAKE TWO TABLETS BY MOUTH ONCE A DAY active Not Available Not Available No t Available naproxen sodium 550 mg tablet active Not Available Not Available No t Available bupropion HCl 75 mg tablet active Not Available Not Available Not Available omeprazole 20 mg capsule,del ayed release TAKE ONE CAPSULE BY MOUTH ONCE A DAY active Not Available Not Available No t Available acyclovir 200 mg capsule TAKE ONE CAPSULE BY MOUTH EVERY 4 HOURS NEEDED FOR FEVER BLISTER active Not Available Not Available No t Available furosemide 20 mg tablet TAKE TWO TABLETS BY MOUTH ONCE A DAY active Not Available Not Available No t Available alprazolam 2 mg tablet TAKE 1 TABLET BY MOUTH THREE TIMES DAILY NEEDED FOR anxiety active Not Available Not Available No t Available benazepril 40 mg tablet TAKE ONE TABLET BY MOUTH EVERY DAY FOR HYPERTENS ION active Not Available Not Available No t Available loratadine 10 mg tablet active Not Available Not Available Not Available naproxen 500 mg tablet active Not Available Not Available Not Available cholecalcif jason (vitamin D3) 25 mcg (1,000 unit) tablet TAKE ONE TABLET BY MOUTH ONCE A DAY active Not Available Not Available No t Available FeroSul 325 mg (65 mg iron) tablet TAKE ONE TABLET BY MOUTH ONCE A DAY active Not Available Not Available No t Available oxycodone 10 mg tablet Take 1 tablet 4 times a day by oral route for 30 days. 05/04 completed Not Available Not Available Not Available desvenlafax ine succinate ER 50 mg tablet,exte nded release 24 hr active Not Available Not Available Not Available desvenlafax ine succinate ER 25 mg tablet,exte nded release 24 hr active Not Available Not Available Not Available Vraylar 1.5 mg capsule active Not Available Not Available N ot Available Vitals Date Recorded Body height Body mass index (BMI) Body weight Heart rate Respiratory rate Systolic blood pressure Diastolic blood pressure Provider Name and Address Organization Details Last Updated DateTime 5 170.18 cm 36.6 kg/m2 868000. 61 g 79 /min 18 /min 134 mm[Hg] 89 mm[Hg] [facility] 5 16:04:31 Social History None recorded. Functional Status None recorded. Mental Status None recorded. Family History Nothing Reported. Medical History No medical history recorded. Gynecological HistoryNo gynecological history recorded. Obstetrics History GPAL:G 0 P 0 0 0 0 Past Encounters Encounter ID Performer Location Encounter Start Date Encounter Closed Date Diagnosis/Indication Diagnosis SNOMED-CT Code Diagnosis ICD10 Code Diagnosis Note [id number] HUAGN MCCONNELL MD [address] [place] [id number] 08/28/2024 15:45:59 08/28/2024 16:23:49 Long-term current use of opiate analgesic drug 8457930497 39275 Z79.891 Diagnostic /Lab: Order Presumptiv e UDT (necessary for rapid results) with Definitive confirmati on for chronic pain patient, to define treatment and reinforce therapeuti c compliance ; the following apply:[Pre sumptive UDT includes: (Amp, Loraine, Guilherme, Bup, THC, HYUN, ETOH, Meth, Opi, Oxy )]*-Patien t is receiving controlled medication s.*-Presum ptive UDT to identify presence of illicit/no n-prescrib ed substance( s) - Confirm positive for ongoing safe prescribin g of controlled substances .*-Presump tive UDT to identify presence of licit/pres cribed substance( s)-Confirm unexpected results, identify specific drug(s) in large class and ensure appropriat e use of prescribed medication (s). _*-Definit bal UDT inadequate ly detected by Presumptiv e UDT (gabapenti n, pregabalin , tramadol, fentanyl, tapentadol and carisoprod ol).HP2 (CBC/CMP/G GT) CBC - ordered to monitor the effects of prescribed medication CMP/GGT - ordered to obtain baseline levels for renal and hepatic functions and electrolyt e statusdraw n to monitor the fpc effects of current medication .Diagnosti c/Lab: Order Presumptiv e UDT (necessary for rapid results) with Definitive confirmati on for chronic pain patient, to define treatment and reinforce therapeuti c compliance ; the following apply:[Pre sumptive UDT includes: (Amp, Loraine, Guilherme, Bup, THC, HYUN, ETOH, Meth, Opi, Oxy )]*-Patien t is receiving controlled medication s.*-Presum ptive UDT to identify presence of illicit/no n-prescrib ed substance( s) - Confirm positive for ongoing safe prescribin g of controlled substances .*-Presump tive UDT to identify presence of licit/pres cribed substance( s)-Confirm unexpected results, identify specific drug(s) in large class and ensure appropriat e use of prescribed medication (s). _*-Definit bal UDT inadequate ly detected by Presumptiv e UDT (gabapenti n, pregabalin , tramadol, fentanyl, tapentadol and carisoprod ol).Diagno stic/Lab: Order Presumptiv e UDT (necessary for rapid results) with Definitive confirmati on for chronic pain patient, to define treatment and reinforce therapeuti c compliance ; the following apply: [Presumpti ve UDT includes: (Amp, Loraine, Guilherme, Bup, THC, HYUN, ETOH, Meth, Opi, Oxy )] *-Patient is receiving controlled medication s. *-Presumpt bal UDT to identify presence of illicit/no n-prescrib ed substance( s) - Confirm positive for ongoing safe prescribin g of controlled substances . *-Presumpt bal UDT to identify presence of licit/pres cribed substance( s)-Confirm unexpected results, identify specific drug(s) in large class and ensure appropriat e use of prescribed medication (s). *-Definiti ve UDT inadequate ly detected by Presumptiv e UDT (gabapenti n, pregabalin , tramadol, fentanyl, tapentadol and carisoprod ol). Chronic low back pain 27 [id number] M54.42 M54.41 G89.29 Low back pain 008266358 M54.50 Neck pain 06226537 M54.2 Cervical s pondylosis without myelopathy 608606647 M47.812 Degenerati on of cervical intervertebral disc 94112935 M54.2 Health Concerns Section Related Observation LastModified by Organization Detai ls LastModified Time None Recorded Concern Status LastModified by Organization Details LastModified Time None Recorded Payers Encounter Date Sequence Insurance Name Policy Number Policy Olivarez Covered Member ID Olivarez Member ID Guarantor Name 08/28/2024 1 [employer] [facility] (MEDICAID HMO) Sarah Horn [id number] Sarah Horn Notes Date Note Type Note Provider Name and Address Organization Details Recorded Time 08/28/2024 text/html DIEGO reviewed and found compliant, Pain is located in lower back down right neck and back,. Pain feels like throbbing and sharp and burning and ache, Pain is constant. Pain keeps him awake at night. Pain gets intense and severe at times. Pain made better by meds. Pain made worse by walking. Pain does radiate. Patient is a follow up. Medical management is stable and no changes today HUANG MCCONNELL MD [address] [facility], [place], [address], [facility] 08/28/2024 16:16:56 OBGyn Episode No OBEpisode recorded.
--- OUTSIDE RECORDS SUMMARY | 2024-10-03 15:10 | XMS_ITS | Data Portability ---
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 ENTIN abnormal status abnormal Not Available Foreign Zhao MD [facility] (In House Lab) [address] [place] [address], [id number], 09/14/2024 15:26:54 08/29/19 25 08/28/2024 GABAP ENTIN abnormal status high Not Available Foreign Zhao MD [facility] (In House Lab) [address] [place] [address], 85323, 09/14/2024 15:26:54 08/29/19 25 08/28/2024 GABAP ENTIN abnormal status low Not Available Foreign Zhao MD [facility] (In House Lab) [address] [place] [address], 88656, 09/14/2024 15:26:54 08/29/19 25 09/06/2024 OXYCO DONE DEFIN ITIVE PANEL -LC/M S oxycodone 141.7 NG/mL <75.0 abnormal Not Available Adriane Zhao MD [facility] (In House Lab) [address] [place] [address], 28504, 09/14/2024 15:26:53 08/29/19 25 09/06/2024 OXYCO DONE DEFIN ITIVE PANEL -LC/M S noroxycodone 257.7 NG/mL <75.0 abnormal Not Available Serge Zhao MD [facility] (In House Lab) [address] [place] [address], [id number], 09/14/2024 15:26:53 08/29/19 25 09/06/2024 OXYCO DONE DEFIN ITIVE PANEL -LC/M S oxymorphone 115.7 NG/mL <75.0 abnormal Not Available Esdras Zhao MD [facility] (In House Lab) [address] [place] [address], 50491, 09/14/2024 15:26:53 08/29/19 25 09/06/2024 GABAP ENTIN DEFIN ITIVE PANEL -LC/M S gabapentin >20206 NG/mL <5000. 0 abnormal Not Available Adriane Zhao MD [facility] (In House Lab) [address] [place] [address], 04665, 09/14/2024 15:26:52 08/29/19 25 09/06/2024 BENZO DIAZE PINE DEFIN ITIVE PANEL - LC/MS alprazolam 0 NG/mL <75.0 Not Available Adriane Zhao MD [facility] (In House Lab) [address] [place] [address], [id number], 09/14/2024 15:26:52 08/29/19 25 09/06/2024 BENZO DIAZE PINE DEFIN ITIVE PANEL - LC/MS A-hydroxyalp razolam 40.8 NG/mL <75.0 Not Available Foreign Zhao MD [facility] (In House Lab) [address] [place] [address], 53415, 09/14/2024 15:26:52 08/29/19 25 09/06/2024 BENZO DIAZE PINE DEFIN ITIVE PANEL - LC/MS clonazepam 0 NG/mL <75.0 Not Available Adriane Zhao MD [facility] (In House Lab) [address] [place] [address], 79084, 09/14/2024 15:26:52 08/29/19 25 09/06/2024 BENZO DIAZE PINE DEFIN ITIVE PANEL - LC/MS 7-aminoclona zepam 0 NG/mL <75.0 Not Available Foreign Zhao MD [facility] (In House Lab) [address] [place] [address], 41884, 09/14/2024 15:26:52 08/29/19 25 09/06/2024 BENZO DIAZE PINE DEFIN ITIVE PANEL - LC/MS diazepam 0 NG/mL <75.0 Not Available Adriane Zhao MD [facility] (In House Lab) [address] [place] [address], [id number], 09/14/2024 15:26:52 08/29/19 25 09/06/2024 BENZO DIAZE PINE DEFIN ITIVE PANEL - LC/MS oxazepam 0 NG/mL <75.0 Not Available Adriane Zhao MD [facility] (In House Lab) [address] [place] [address], 38568, 09/14/2024 15:26:52 08/29/19 25 09/06/2024 BENZO DIAZE PINE DEFIN ITIVE PANEL - LC/MS temazepam 0 NG/mL <75.0 Not Available Adriane Zhao MD [facility] (In House Lab) [address] [place] [address], 64184, 09/14/2024 15:26:52 08/29/19 25 09/06/2024 BENZO DIAZE PINE DEFIN ITIVE PANEL - LC/MS lorazepam 0 NG/mL <75.0 Not Available Adriane Zhao MD [facility] (In House Lab) [address] [place] [address], 81894, 09/14/2024 15:26:52 08/29/19 25 08/29/2024 D-PRE SUMPT QUINCY URINE DRUG REPOR T amphetamine NEGATI VE NG/mL <1000. 0 Not Available Adriane Zhao MD [facility] (In House Lab) [address] [place] [address], 78902, 09/14/2024 15:26:51 08/29/19 25 08/29/2024 D-PRE SUMPT QUINCY URINE DRUG REPOR T benzodiazepi ne 680.0 NG/mL <200.0 high Curre nt metho d may not detec t low level s of Klono pin Not Available Adriane Zhao MD [facility] (In House Lab) [address] [place] [address], 12726, 09/14/2024 15:26:51 08/29/19 25 08/29/2024 D-PRE SUMPT QUINCY URINE DRUG REPOR T buprenorphin e NEGATI VE NG/mL <10.0 Not Available Adriane Zhao MD [facility] (In House Lab) [address] [place] [address], 39283, 09/14/2024 15:26:51 08/29/19 25 08/29/2024 D-PRE SUMPT QUINCY URINE DRUG REPOR T cannabinoid NEGATI VE NG/mL <50.0 Not Available Adriane Zhao MD [facility] (In House Lab) [address] [place] [address], 95110, 09/14/2024 15:26:51 08/29/19 25 08/29/2024 D-PRE SUMPT QUINCY URINE DRUG REPOR T cocaine NEGATI VE NG/mL <300.0 Not Available Adriane Zhao MD [facility] (In House Lab) [address] [place] [address], 71052, 09/14/2024 15:26:51 08/29/19 25 08/29/2024 D-PRE SUMPT QUINCY URINE DRUG REPOR T ethanol NEGATI VE mg/dL <50.0 Not Available Adriane Zhao MD [facility] (In House Lab) [address] [place] [address], 87631, 09/14/2024 15:26:51 08/29/19 25 08/29/2024 D-PRE SUMPT QUINCY URINE DRUG REPOR T methadone <0.8 NG/mL <300.0 Not Available Adriane Zhao MD [facility] (In House Lab) [address] [place] [address], 44614, 09/14/2024 15:26:51 08/29/19 25 08/29/2024 D-PRE SUMPT QUINCY URINE DRUG REPOR T opiates <6.4 NG/mL <300.0 Opiat es inclu anna Codei ne,Mo rphin e, [place] morph one,H ydroc odone Not Available Adriane Zhao MD [facility] (In House Lab) [address] [place] [address], 27688, 09/14/2024 15:26:51 08/29/19 25 08/29/2024 D-PRE SUMPT QUINCY URINE DRUG REPOR T oxycodone 476.0 NG/mL <300.0 high Not Available Adriane Zhao MD [facility] (In House Lab) [address] [place], [address], 09/14/2024 15:26:51 08/29/19 25 08/29/2024 D-PRE SUMPT QUINCY URINE DRUG REPOR T urine creatinine (validity test) 11.1 mg/dL 20.0 - 300.0 low Not Available Adriane Zhao MD [facility] (In House Lab) [address] [place], [address], 09/14/2024 15:26:51 Result Notes None recorded. Problems Name Problem SNOMED Code Status Onset Date Resolution Date Notes Provider Name and Address Organization Details Recorded Time Neck pain 83102507 Active 024 DUSTIN MCCONNELL MD [address] [place], [address] , [facility] 5 14:35:05 Low back pain 095456251 Active 024 [place] [address] [place] [address], [phone] , [facility] 4 09:07:55 Chronic low back pain 555259731 Active 025 [place] [address] [place] [address], [address] , [facility] 5 14:34:34 [...] height Body mass index (BMI) Body weight Body temperature Respiratory rate Heart rate Systolic blood pressure Diastolic blood pressure Provider Name and Address Organization Details Last Updated DateTime 5 170.18 cm 38.4 kg/m2 542034. 13 g 98.4 [degF] 18 /min 82 /min 155 mm[Hg] 81 mm[Hg] [facility] 5 15:08:27 Date Recorded Body height Body mass index (BMI) Body weight Body temperature Heart rate Systolic blood pressure Diastolic blood pressure Provider Name and Address Organization Details Last Updated DateTime 5 170.18 cm 36.3 kg/m2 915116. 43 g 98 [degF] 73 /min 153 mm[Hg] 84 mm[Hg] [facility] 5 16:00:45 Date Recorded Body height Body mass index (BMI) Body weight Heart rate Respiratory rate Systolic blood pressure Diastolic blood pressure Provider Name and Address Organization Details Last Updated DateTime 5 170.18 cm 36.6 kg/m2 361348. 61 g 79 /min 18 /min 134 mm[Hg] 89 mm[Hg] Guill[facility]ina [facility] 5 16:04:31 Date Recorded Body weight Body mass index (BMI) Body height Respiratory rate Body temperature Heart rate Systolic blood pressure Diastolic blood pressure Provider Name and Address Organization Details Last Updated DateTime 4 477688. 13 g 38.4 kg/m2 170.18 cm 18 /min 98.4 [degF] 69 /min 135 mm[Hg] 87 mm[Hg] [facility] 4 08:53:27 Date Recorded Body height Body mass index (BMI) Body weight Body temperature Heart rate Respiratory rate Systolic blood pressure Diastolic blood pressure Provider Name and Address Organization Details Last Updated DateTime 4 170.18 cm 38.4 kg/m2 346505. 13 g 95.5 [degF] 84 /min 18 /min 156 mm[Hg] 109 mm[Hg] [facility] 4 16:08:20 Social History None recorded. Functional Status None recorded. Mental Status None recorded. Family History Nothing Reported. Medical History No medical history recorded. Gynecological HistoryNo gynecological history recorded. Obstetrics History GPAL:G 0 P 0 0 0 0 Past Encounters Encounter ID Performer Location Encounter Start Date Encounter Closed Date Diagnosis/Indication Diagnosis SNOMED-CT Code Diagnosis ICD10 Code Diagnosis Note [id number] DUSTIN MCCONNELL MD [address] [place] [phone] 01/18/2024 07:57:28 01/18/2024 09:22:53 Long-term current use of opiate analgesic drug 5449843132 72343 Z79.891 Diagnostic /Lab: Order Presumptiv e UDT (necessary for rapid results) with Definitive confirmati on for chronic pain patient, to define treatment and reinforce therapeuti c compliance ; the following apply: [Presumpti ve UDT includes: (Amp, Loraine, Guilherme, Bup, THC, HYUN, ETOH, Meth, Opi, Oxy )] *-Patient is receiving controlled medication s. *-Presumpt quincy UDT to identify presence of illicit/no n-prescrib ed substance( s) - Confirm positive for ongoing safe prescribin g of controlled substances . *-Presumpt quincy UDT to identify presence of licit/pres cribed substance( s)-Confirm unexpected results, identify specific drug(s) in large class and ensure appropriat e use of prescribed medication (s). *-Definiti ve UDT inadequate ly detected by Presumptiv e UDT (gabapenti n, pregabalin , tramadol, fentanyl, tapentadol and carisoprod ol). 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 Neck pain 09463594 M54.2 Low back pain 617323309 M54.50 [id number] DUSTIN MCCONNELL MD [facility] [place] [address] 03/09/2024 16:01:17 03/09/2024 17:38:21 Long-term current use of opiate analgesic drug [id number] 86371 Z79.891 Diagnostic /Lab: Order Presumptiv e UDT [...] e use of prescribed medication (s). 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 *-Presumpt quincy UDT to identify presence of illicit/no n-prescrib ed substance( s) - Confirm positive for ongoing safe prescribin g of controlled substances . *-Presumpt quincy UDT to identify presence of licit/pres cribed substance( s)-Confirm unexpected results, identify specific drug(s) in large class and ensure appropriat e use of prescribed medication (s). *-Definiti ve UDT inadequate ly detected by Presumptiv e UDT (gabapenti n, pregabalin , tramadol, fentanyl, tapentadol and carisoprod ol). Chronic low back pain 27 8264904 M54.42 M54.41 G89.29 Neck pain 14186938 M54.2 [id number] Teresa Hester, SPORTS DOCTOR [address] [place] [address] 05/04/2024 15:02:48 05/04/2024 15:30:21 Long-term current use of opiate analgesic drug [id number] 25777 Z79.891 Diagnostic /Lab: Order Presumptiv e UDT (necessary for rapid results) with Definitive confirmati on for chronic pain patient, to define treatment and reinforce therapeuti c compliance ; the following apply: [Presumpti ve UDT includes: (Amp, Loraine, Guilherme, Bup, THC, HYUN, ETOH, Meth, Opi, Oxy )] *-Patient is receiving controlled medication s. *-Presumpt quincy UDT to identify presence of illicit/no n-prescrib ed substance( s) - Confirm positive for ongoing safe prescribin g of controlled substances . *-Presumpt quincy UDT to identify presence of licit/pres cribed substance( s)-Confirm unexpected results, identify specific drug(s) in large class and ensure appropriat e use of prescribed medication (s). *-Definiti ve UDT inadequate ly detected by Presumptiv e UDT (gabapenti n, pregabalin , tramadol, fentanyl, tapentadol and carisoprod ol). HP1 (CBC/Renal /Hepatic/G GT) CBC - ordered to monitor the effects of prescribed medication s. Renal/Hepa tic/GGT - ordered to monitor toxicity of renal hepatic function due to medication . Degenerati on of lumbar intervertebral disc 86665824 M51.362 Degenerati on of cervical intervertebral disc 73792101 M50.30 Neck pain 15936785 M54.2 Cervical s pondylosis without myelopathy 457352081 7.142 [id number] DUSTIN MCCONNELL MD [address] [place] [id number] 07/03/2024 15:54:37 07/03/2024 16:13:36 Chronic low back pain 726197159 M54.42 M54.41 G89.29 Low back pain 189473792 M54.50 Neck pain 45962417 M54.2 Degenerati on of cervical intervertebral disc 67554140 M54.2 Cervical s pondylosis without myelopathy 730431649 7.373 [id number] DUSTIN MCCONNELL MD [address] [place] [phone] 08/28/2024 15:45:59 08/28/2024 16:23:49 Long-term current use of opiate analgesic drug [id number] 85774 Z79.891 Diagnostic /Lab: Order Presumptiv e UDT [...] e use of prescribed medication (s). 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 _*-Definit quincy UDT inadequate ly detected by Presumptiv e [...] *-Patient is receiving controlled medication s. *-Presumpt quincy UDT to identify presence of illicit/no n-prescrib ed substance( s) - Confirm positive for ongoing safe prescribin g of controlled substances . *-Presumpt quincy UDT to identify presence of licit/pres cribed substance( s)-Confirm unexpected results, identify specific drug(s) in large class and ensure appropriat e use of prescribed medication (s). *-Definiti ve UDT inadequate ly detected by Presumptiv e UDT (gabapenti n, pregabalin , tramadol, fentanyl, tapentadol and carisoprod ol). Chronic low back pain 27 8033060 M54.42 M54.41 G89.29 Low back pain 594011446 M54.50 Neck pain 00948919 M54.2 Cervical s pondylosis without myelopathy 491017956 M47.812 Degenerati on of cervical intervertebral disc 13231003 M54.2 Health Concerns Section Related Observation LastModified by Organization Detai ls LastModified Time None Recorded Concern Status LastModified by Organization Details LastModified Time None Recorded Advance Directives Directive None Recorded Payers Insurance Date Sequence Insurance Name Policy Number Policy Olivarez Covered Member ID Olivarez Member ID Guarantor Name 09/15/2024 1 [employer] [facility] (MEDICAID HMO) Sarah Horn [id number] Sarah Horn Notes Date Note Type Note Provider Name and Address Organization Details Recorded Time 01/18/2024 text/html [facility] report reviewed and compliant. Meds from family doc. Pain is in neck and back and posterior neck, Pain feels like stabbing and throbbing, Pain keeps awake at night. Pain is constant, Pain gets intense and severe3. Pain made better by sitting. Pain made worse by working. Pain does radiate. patient is NEW patient. Medical management is oxycodone 10mg QID and gabapentin 800mg TID needed February 05 DUSTIN MCCONNELL MD [address] [facility], [place], [address], [facility] 01/18/2024 09:11:19 03/09/2024 text/html [facility] report reviewed and compliant. Pain is in neck and lower back,Painfeels sharp Pain keeps awake at night. Kalpana is constant. Pain gets intense and severe. Pain made better by sitting. Pain made worse by standing. Pain does radiate. Patient is a follow up Medical management is stable and no changes today DUSTIN MCCONNELL MD [address], [place], [address], [facility] 06/05/2024 14:36:20 05/04/2024 text/html Her pain is constant but varies in intensity. Pain is aggravated by over-exertion, lifting, pushing/pulling, reaching, and weather changes she is active in the house and works 60 hrs/wkDenies SE to meds Teresa Hester, SPORTS DOCTOR [address] [facility], [place], [address], [facility] 05/05/2024 10:16:37 07/03/2024 text/html [facility] report reviewed and compliant. Pain is in low back and her neck. Pain feels like sthrobbing pain and sharp and ache. Pain is constant. Pain keeps patient awake at night. Pain gets intense and severe. Pain made better by meds. Pain made worse by sitting. Pain does radiate down thhe right arm and hand Medical management is stable and no changes today DUSTIN MCCONNELL MD [address], [place], [address], [facility] 07/03/2024 16:07:24 08/28/2024 text/html [facility] reviewed and found compliant, [...] management is stable and no changes today DUSTIN MCCONNELL MD [address], [place], [address], [facility] 08/28/2024 16:16:56 OBGyn Episode No OBEpisode recorded.
[2024-10-03 15:13] VITALS: BP 96/52; PULSE 71; RESP 16; TEMP 36.7; O2SAT 98; BMI 34.2
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
[2024-10-03] MEDS: diazePAM 2MG TABLET 2 MG PO (15:44)
[2024-10-03] MEDS: KETOROLAC 30MG/ML VIAL 15 MG IM (15:44)
[2024-10-03] MEDS: DEXAMETHASONE 4MG/ML 1ML VIAL 10 MG IM (15:44)
[2024-10-03 15:55] VITALS: BP 123/70; PULSE 71; RESP 18; TEMP 36.6
--- OUTSIDE RECORDS SUMMARY | 2024-10-03 16:03 | XMS_ITS | Clinical Summary ---
Author Organization Healthcare Address [address] [facility] [facility] [place] [address] Care Team Providers Care Plater Supervisor Name Role Phone Unavailable Primary Care Provider [...]
== END 2024-10-03 15:56 | disposition home or self-care (01) ==
PROVIDERS: Emergency Provider Emergency Medicine; PCP Family Medicine
DX: M51.362 Other intervertebral disc degeneration, lumbar region with discogenic back pain and lower extremity pain (principal); M54.16 Radiculopathy, lumbar region
CPT/HCPCS: 96372; 99283; J1100; J1885